=== PATIENT | male | born 1925 | race Caucasian/White ===

== ENCOUNTER 2016-10-27 12:18 | Emergency (ER) | payer OTHER ==
[2016-10-27] MEDS ORDERED: TDAP ADULT 0.5 ML INJ (BOOSTRIX) IM ONE (12:39)
--- NOTE | 2016-10-27 12:45 | EDPHY ---
H & P Stated Complaint: fall from standing, right arm skin tear HPI/ROS: CHIEF COMPLAINT: Fall, right upper extremity skin tear HISTORY OF PRESENT ILLNESS: the patient was at an exercise class today when he slipped and fell. He tripped on 1 of the boards he was using, striking his right arm on the board. He sustained a skin tear to the dorsum of the right forearm from this. He did not strike his head or lose consciousness. No neck pain. No chest pain. No back pain. No shortness of breath. No pain in the arms or legs. No injuries elsewhere. Tetanus is questionably out of date. He is has no numbness or tingling distally to the wound. The bleeding was maintained with simple dressing. He mentions that the fire fire paramedics told him that he had an abnormal heart rhythm on 12 lead run strip, but he denies any cardiac complaints of any kind. No other associated complaints or modifying factors. REVIEW OF SYSTEMS: Ten systems reviewed and are negative unless otherwise noted in the HPI PERTINENT MEDICAL HISTORY: Reviewed as documented EXAMINATION General Appearance: Alert, no distress Head: normocephalic, atraumatic. No Garzon sign. No raccoon eyes. No depression. No deformity. Eyes: Pupils equal and round, no conjunctival pallor or injection ENT, Mouth: Mucous membranes moist Neck: Normal inspection, supple, non-tender . No bony tenderness or crepitus. Respiratory: Lungs are clear to auscultation . No wheezing, rhonchi or crackles. Cardiovascular: Regular rate and rhythm Gastrointestinal: Abdomen is soft and nontender Neurological: GCS 15. A&O, nonfocal, normal gait. Strength symmetric in all limbs. Skin: Warm and dry, no rash . Bruising to the right upper extremity with superficial skin tear that is approximately 8 cm, curvilinear injected. No compromise of the subcutaneous tissue. Minimal bleeding noted. Extremities: Tenderness over the skin tear of the right upper extremity. No bony tenderness at any point of the extremities. Range of motion is symmetric in both arms and legs. Psychiatric: Mood and affect normal DIFFERENTIAL DIAGNOSES: Including but not limited to mechanical fall, skin tear, contusion, abrasion, hematoma MDM: 12:40 p.m. mechanical fall with right forearm skin tear. This happened patient tripped, landing on his forearm while an exercise class. No loss of conscious. No chest pain. No injury elsewhere. There is no wound that can be repaired with sutures at the skin is too thin. The wound will be irrigated and dressed with standard skin tear treatment. There is mention of an abnormal 12 lead that was performed by the [employer] fire[employer] paramedics prior to arrival. He denies any cardiac complaints of any kind but I will obtain an EKG. 1:20 p.m. EKG has been performed and interpreted by Dr. Camp. There are no changes from October 10, 2015. 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 No acute changes. No acute ischemia. No conduction delay otherwise. He also has no cardiac complaints of any kind. This was a purely mechanical fall. The wound has been dressed and he will be discharged home with daily wound care instructions. He is to contact his primary care physician for wound inspection in 2 days. Return here for any signs of infection as discussed. He is comfortable this plan and discharged home stable condition. SUPERVISION: Patient was evaluated in conjunction with the supervising physician. Please see their note for details. Source: Patient, Family Exam Limitations: No limitations - Personal History Current Tetanus/Diphtheria Vaccine: No Current Tetanus Diphtheria and Acellular Pertussis (TDAP): No Tetanus Vaccine Date: UNKNOWN - Medical/Surgical History Hx Asthma: No Hx Chronic Respiratory Disease: No Hx Diabetes: No Hx Cardiac Disease: No Hx Renal Disease: No Hx Cirrhosis: No Hx HIV/AIDS: No Hx Splenectomy or Spleen Trauma: No Other PMH: HTN, GERD, BLAISE (CPAP), colon CA, hypercholesterol, R TKA (2005), aortic stenosis, cardiac cath (09/2015) - Social History Smoking Status: Former smoker Constitutional: Initial Vital Signs Temperature (C) 97.9 F 10/27/16 12:24 Heart Rate 79 10/27/16 12:24 Respiratory Rate 18 10/27/16 12:24 Blood Pressure 156/75 H 10/27/16 12:24 O2 Sat (%) 93 10/27/16 12:24 O2 Delivery Mode Room Air Allergies/Adverse Reactions: No Known Allergies Allergy (Verified 10/27/16 12:24) Home Medications: Medication Instructions Recorded Cholecalciferol Vit D3 [Vitamin D3 6,000 units PO DAILY 12/02/12 2000 units] Glucosamine/Chondroitin 2 each PO DAILY 12/02/12 [Glucosamine/Chondroitin (*)] Herbals/Supplements -Info Only 1 each PO AD 12/02/12 Multivitamins [Multivitamin (*)] 1 each PO DAILY 12/02/12 Hemet-3 Fatty Acids [Fish Oil 1000 1,000 mg PO DAILY 12/02/12 mg (*)] Vit C/Dl-E AC/Lut/Copper/Znox 2 each PO DAILY 12/02/12 [Preservision Softgel] Zolpidem Tartrate [Ambien 5MG (*)] 10 mg PO HS 12/02/12 Pantoprazole Sodium [Protonix 40mg 40 mg PO BIDAC 12/06/12 (*)] Atorvastatin Calcium [Lipitor 10 10 mg PO HS 01/24/13 mg (*)] Docusate Sodium [Dss] 100 mg PO HS 01/24/13 FLUoxetine [Prozac 20 MG (*)] 20 mg PO DAILY 10/26/15 Hydrochlorothiazide [HCTZ (*)] 12.5 mg PO DAILY 10/26/15 LORazepam [Ativan (*)] 0.5 mg PO DAILY 10/26/15 Niacin [Slo-Niacin] 500 mg PO HS 10/26/15 OLANZapine [ZyPREXA 2.5 mg (*)] 2.5 mg PO HS 10/26/15 amLODIPine BESYLATE [Norvasc 10 mg 10 mg PO HS 10/26/15 (*)] Acetaminophen [Tylenol 325mg (*)] 325 - 650 mg PO Q4 PRN #0 tab 11/07/15 Aspirin EC [Aspirin EC 325 mg (*)] 325 mg PO DAILY #21 tab 11/07/15 Ferrous Sulfate [Slow Fe 140 MG 140 mg PO DAILY #30 tab.er 11/07/15 (*)] Ondansetron Odt [Zofran Odt 4 mg 4 - 8 mg PO Q6 PRN #0 tab 11/07/15 (*)] traMADol [Ultram 50 mg (*)] 100 mg PO BID #0 tab 11/07/15 Medical Decision Making - Data Points Medications Given: Discontinued Medications Diphtheria/Tetanus/Acell Pertussis (Boostrix) 0.5 ml IM .ONCE ONE Stop: 10/27/16 12:40 Last Admin: 10/27/16 12:49 Dose: 0.5 ml Departure - Departure Disposition: Home, Routine, Self-Care Clinical Impression: Fall from standing Qualifiers: Encounter type: initial encounter Qualified Code(s): W19.XXXA - Unspecified fall, initial encounter Skin tear of forearm without complication Qualifiers: Encounter type: initial encounter Laterality: right Qualified Code(s): S51.811A - Laceration without foreign body of right forearm, initial encounter Condition: Good Instructions: Skin Tear (ED) Additional Instructions: Daily wound care as discussed with dressing changes. Contact primary care physician for a wound check in 48 hours. Return here for signs of infection as discussed. Referrals: Patient,NotPresent [Unknown] - As per Instructions Rupert Landa PA [Primary Care Provider] - As per Instructions
--- NOTE | 2016-10-27 13:00 | CPEKG ---
Heart Rate: 66 RR Interval: 909 P-R Interval: 200 QRSD Interval: 126 QT Interval: 428 QTC Interval: 449 P Woodward: 54 QRS Woodward: -41 T Wave Woodward: 41 EKG Severity - ABNORMAL ECG - EKG Impression: SINUS RHYTHM EKG Impression: PROBABLE LEFT ATRIAL ABNORMALITY EKG Impression: RBBB AND LAFB EKG Impression: LEFT VENTRICULAR HYPERTROPHY Electronically Signed By: Prashanth Camp 27-Oct-2016 14:34:52
[2016-10-27 14:28] VITALS: BP 163/77; PULSE 77; RESP 16; TEMP 97.5; O2SAT 94
== END 2016-10-27 14:28 | disposition home or self-care (01) ==
LOC: EDUNIT#
DX: S51.811A Laceration without foreign body of right forearm, initial encounter (principal); I10 Essential (primary) hypertension; Z23 Encounter for immunization; Z85.038 Personal history of other malignant neoplasm of large intestine; Z95.5 Presence of coronary angioplasty implant and graft; Z87.891 Personal history of nicotine dependence; Z79.82 Long term (current) use of aspirin; W01.198A Fall on same level from slipping, tripping and stumbling with subsequent striking against other object, initial encounter; Y92.89 Other specified places as the place of occurrence of the external cause; Y99.8 Other external cause status; Y93.89 Activity, other specified

== ENCOUNTER → 2017-02-13 | Outpatient (CLI) | payer OTHER | LOC: BHFA 14:45 | PROVIDERS: ATTEND Internal Medicine Cardiovascular Disease | DX: I35.0 Nonrheumatic aortic (valve) stenosis (principal) ==

== ENCOUNTER → 2017-02-26 | Outpatient (CLI) | payer OTHER | LOC: BHFA 14:30 | PROVIDERS: ATTEND Internal Medicine Cardiovascular Disease | DX: R06.09 Other forms of dyspnea (principal) ==